=== PATIENT | male | born 1940 | race African-American/Black ===

== ENCOUNTER 2016-04-27 17:00 | Emergency (ER) | payer OTHER ==
[2016-04-27 16:40] LABS: BASOPHILS 0.3 %; BASOPHILS ABSOLUTE 0.02 10/3/uL (0.0-0.16); EOSINOPHILS 1.7 %; HEMATOCRIT 45.4 % (40.0-51.0); HEMOGLOBIN 15.1 g/dL (13.6-17.8); IMMATURE GRANULOCYTES 0.2 %; IMMATURE GRANULOCYTES ABSOLUTE 0.01 10/3/uL (0.0-0.11); LYMPHOCYTES 15.7 %; LYMPHOCYTES ABSOLUTE 0.95 10/3/uL (0.67-4.30); MEAN CORPUS HGB CONC 33.3 g/dL (32.0-36.0); MEAN CORPUSCULAR HEMOGLOB 28.1 pg (26.0-34.0); MEAN CORPUSCULAR VOLUME 84.4 fL (80-100); MEAN PLATELET VOLUME 9.2 fL (9.2-13.0); MONOCYTES 10.7 %; MONOCYTES ABSOLUTE 0.65 10/3/uL (0.21-1.20); NEUTROPHILS 71.4 %; NEUTROPHILS ABSOLUTE 4.33 10/3/uL (2.02-8.40); RBC DISTRIBUTION WIDTH 13.4 % (12.0-16.0); RED CELL COUNT 5.38 10/6/uL (4.7-6.1); WHITE BLOOD CELLS 6.1 10/3/uL (4.5-10.5)
[2016-04-27 16:41] LABS: MANUAL DIFF NO %; PLATELET COUNT 289 10/3/uL (150-400)
[2016-04-27 16:55] LABS: ASCORBIC ACID (UR NOT ORDER) NEG (NEG); BILIRUBIN, URINE NEGATIVE (NEG); ER URINALYSIS TAT 0 Hrs 21 Mins; KETONE, URINE NEGATIVE (NEG); LEUKOCYTE ESTERASE(NOT OR TRACE (NEG); NITRITE (URINE) NEG (NEG); WBC (NOT ORDERED) (RFLEX) 12 (0-5)
[2016-04-27 16:55] LABS: A/G RATIO 0.7 (0.7-1.9); ALBUMIN 3.2 G/DL (3.5-5.0); ALKALINE PHOSPHATASE 86 U/L (45-117); BUN (BLOOD UREA NITROGEN) 15 MG/DL (6-23); CALCIUM, SERUM 8.9 MG/DL (8.5-10.4); CHLORIDE, SERUM 106 MMOL/L (96-112); CO2 (CARBON DIOXIDE) 23 MMOL/L (24-34); CREATININE 1.53 MG/DL (0.70-1.30); GFR AFRICAN AMERICAN 52 ML/MIN (>=60); GFR NON AFRICAN AMERICAN 44 ML/MIN (>=60); GLOBULIN 4.9 G/DL (2.5-4.1); GLUCOSE, SERUM 287 MG/DL (60-99); POTASSIUM, SERUM 4.8 MMOL/L (3.5-5.3); SGOT(AST) 10 U/L (5-40); SGPT(ALT) 24 U/L (5-65); SODIUM, SERUM 139 MMOL/L (135-148); TOTAL BILIRUBIN 0.6 MG/DL (0-1.2); TOTAL PROTEIN 8.1 G/DL (6.0-8.5)
[~2016-04-27 17:00] MED LIST: ASAB PO; COREG6 PO; FISH-EPA1000 MG PO; GLUCOPHAGE1000 MG PO; GLUCPH8 PO; ISMO20 MG PO; ISORDIL20 PO; LANTUS SC; LOP25 PO; MAGOX4 PO; MONOKET20 PO; NEUR100 PO; NITROSTAT0.4 MG SL; NOVOLOG SC; PLAVIX PO; PREV15 PO; PRIN20 PO; ZESTRIL10 MG PO; ZOCOR40 PO
== END 2016-04-27 19:41 | disposition home or self-care (01) ==
LOC: ER 17:00
PROVIDERS: Emergency Medicine
DX: R10.9 Unspecified abdominal pain (principal); R31.9 Hematuria, unspecified; I10 Essential (primary) hypertension; E11.9 Type 2 diabetes mellitus without complications; Z95.1 Presence of aortocoronary bypass graft; Z87.891 Personal history of nicotine dependence; Z79.82 Long term (current) use of aspirin; Z79.899 Other long term (current) drug therapy
CPT/HCPCS: 74176; 80053; 81001; 83690; 85025; 99285; A9270-GY

== ENCOUNTER 2016-05-04 06:15 | Inpatient (IN) | payer OTHER ==
[2016-04-30 15:15] LABS: BUN (BLOOD UREA NITROGEN) 16 MG/DL (6-23); CALCIUM, SERUM 8.7 MG/DL (8.5-10.4); CHLORIDE, SERUM 106 MMOL/L (96-112); CO2 (CARBON DIOXIDE) 27 MMOL/L (24-34); CREATININE 1.61 MG/DL (0.70-1.30); GFR AFRICAN AMERICAN 48 ML/MIN (>=60); GFR NON AFRICAN AMERICAN 42 ML/MIN (>=60); POTASSIUM, SERUM 4.1 MMOL/L (3.5-5.3); SODIUM, SERUM 141 MMOL/L (135-148)
[2016-04-30 15:16] LABS: GLUCOSE, SERUM 221 MG/DL (60-99)
--- NOTE | ~2016-05-04 | OP ---
Record Of Operation [facility] [address] [place]. [address] NAME: MILLICENT DAVIDSON : 44 STATUS : ADM IN PAT#: [id number] AGE: 75 ADM/REG DATE : 05/04/16 MR#: [id number] REPORT SERV DATE: 05/04/16 DICTATED BY: TION VELAZCO DATE: 05/04/16 REPORT STATUS : Draft TRANSCRIBED BY: MODL DATE: 05/04/16 DATE OF PROCEDURE: 05/04/2016 PREOPERATIVE DIAGNOSES: 1. Severe left internal carotid artery stenosis. 2. Occlusion of the right internal carotid artery. SURGERY PERFORMED: Left carotid endarterectomy. SURGEON: Tino Velazco M.D. MONUMENT SETTER: Scot. DESCRIPTION OF PROCEDURE: The patient was placed under general endotracheal anesthesia. The neck and chest were prepped and draped in sterile fashion. Incision was made along the anterior border of the sternocleidomastoid muscle and carried through the skin and subcutaneous tissue. Platysma was opened with the cautery unit and the facial vein was doubly clamped, divided, and tied with 3-0 silk suture. The common carotid artery was dissected from the surrounding tissue using sharp dissection. The common carotid artery was encircled with a vessel loop. Dissection of the internal and external was done sharply. Additional venous structures were doubly ligated. The ansa cervicalis also was doubly clipped and divided in order to get more exposure distally. These vessels were encircled with vessel loops. He was given 5000 units of heparin and after an adequate period of time, the internal and external common carotid arteries were occluded. Arteriotomy was made in the common and extended through the bulb into the internal with the Summers scissors. Endarterectomy was carried out with the [place] elevator. The proximal plaque was cut sharply, the external was done as an eversion, the internal showed a step-off that was tacked down with interrupted 6-0 Prolene suture. The opening in the vessel was then closed with a bovine patch, which was sewn on with running 6-0 Prolene suture. Before the patch was completed, the shunt was removed. Flushing was carried out and then the patch was completed, suture tied. Flow initially was released to the external and then to the internal carotid artery. Surgicel was placed over the patch. He was given 40 mg of protamine. Hemostasis was obtained using the cautery unit. A 7 flat BRISEYDA drain was brought out inferiorly and sutured to the skin with 3-0 Vicryl. The wound was then closed with 2-0 and 3-0 Vicryl for the deep tissue and the platysma. Skin was closed with a subcuticular 4- 0 Monocryl. Dry dressings were applied. Estimated blood loss was 150 mL. He did awake from the operating room, moving all four extremities. MG/MODL Tino Velazco M.D. / [id number] Record Of [address] [address] NAME: MILLICENT DAVIDSON : 44 STATUS : ADM IN [facility]#: [id number] AGE: 75 ADM/REG DATE : 05/04/16 MR#: [id number] REPORT SERV DATE: 05/04/16 DICTATED BY: TINO VELAZCO DATE: 05/04/16 REPORT STATUS : Draft TRANSCRIBED BY: MODL DATE: 05/04/16 CC: Tino Velazco M.D.
[2016-05-04 07:07] LABS: ASCORBIC ACID (UR NOT ORDER) NEG (NEG); BILIRUBIN, URINE NEGATIVE (NEG); KETONE, URINE NEGATIVE (NEG); LEUKOCYTE ESTERASE(NOT OR MOD (NEG); WBC (NOT ORDERED) (RFLEX) 22 (0-5)
[2016-05-04 15:03] LABS: HEMOGLOBIN 12.9 g/dL (13.6-17.8)
[2016-05-04 15:09] LABS: HEMATOCRIT 37.8 % (40.0-51.0)
[2016-05-05 04:01] LABS: BUN (BLOOD UREA NITROGEN) 8 MG/DL (6-23); CALCIUM, SERUM 7.5 MG/DL (8.5-10.4); CHLORIDE, SERUM 105 MMOL/L (96-112); CO2 (CARBON DIOXIDE) 26 MMOL/L (24-34); CREATININE 0.99 MG/DL (0.70-1.30); GFR AFRICAN AMERICAN 87 ML/MIN (>=60); GFR NON AFRICAN AMERICAN 75 ML/MIN (>=60); GLUCOSE, SERUM 164 MG/DL (60-99); POTASSIUM, SERUM 3.6 MMOL/L (3.5-5.3); SODIUM, SERUM 141 MMOL/L (135-148)
[2016-05-05] MEDS ORDERED: PCET PO (12:39)
== END 2016-05-05 16:10 | disposition home or self-care (01) | DRG 39 ==
LOC: SDC/OF 06:15 → PACU 10:11 → CVICU 11:37
PROVIDERS: Surgery Vascular Surgery
PROC: 03CL0ZZ Extirpation of Matter from Left Internal Carotid Artery, Open Approach (ICD-10-PCS; principal; 2016-05-04 08:15)
DX: I65.23 Occlusion and stenosis of bilateral carotid arteries (principal); E11.9 Type 2 diabetes mellitus without complications; I12.9 Hypertensive chronic kidney disease with stage 1 through stage 4 chronic kidney disease, or unspecified chronic kidney disease; I25.10 Atherosclerotic heart disease of native coronary artery without angina pectoris; Z79.4 Long term (current) use of insulin; Z79.899 Other long term (current) drug therapy; Z95.5 Presence of coronary angioplasty implant and graft; I73.9 Peripheral vascular disease, unspecified; N18.2 Chronic kidney disease, stage 2 (mild); Z79.84 Long term (current) use of oral hypoglycemic drugs; Z79.02 Long term (current) use of antithrombotics/antiplatelets; Z28.21 Immunization not carried out because of patient refusal
CPT/HCPCS: 71020; 80048; 81001; 82962; 85014; 85018; 87086; 87641; 88304; 88311; A9270-GY; C1768; J0690; J1170; J2250; J2270; J2370; J2405; J2710; J2720; J3010

== ENCOUNTER 2016-05-25 13:10 | Day surgery (SDC) | payer OTHER ==
[2016-05-19 11:36] LABS: BASOPHILS 0.7 %; BASOPHILS ABSOLUTE 0.04 10/3/uL (0.0-0.16); EOSINOPHILS 4.2 %; EOSINOPHILS ABSOLUTE 0.23 10/3/uL (0.0-0.53); HEMOGLOBIN 11.2 g/dL (13.6-17.8); IMMATURE GRANULOCYTES 0.2 %; IMMATURE GRANULOCYTES ABSOLUTE 0.01 10/3/uL (0.0-0.11); LYMPHOCYTES 27.3 %; LYMPHOCYTES ABSOLUTE 1.49 10/3/uL (0.67-4.30); MEAN CORPUS HGB CONC 33.8 g/dL (32.0-36.0); MEAN CORPUSCULAR HEMOGLOB 28.6 pg (26.0-34.0); MEAN CORPUSCULAR VOLUME 84.4 fL (80-100); MEAN PLATELET VOLUME 8.5 fL (9.2-13.0); MONOCYTES 10.1 %; MONOCYTES ABSOLUTE 0.55 10/3/uL (0.21-1.20); NEUTROPHILS 57.5 %; NEUTROPHILS ABSOLUTE 3.13 10/3/uL (2.02-8.40); PLATELET COUNT 247 10/3/uL (150-400); RBC DISTRIBUTION WIDTH 13.7 % (12.0-16.0); WHITE BLOOD CELLS 5.5 10/3/uL (4.5-10.5)
[2016-05-19 11:37] LABS: HEMATOCRIT 33.1 % (40.0-51.0); MANUAL DIFF NO %; RED CELL COUNT 3.92 10/6/uL (4.7-6.1)
[2016-05-19 11:51] LABS: BUN (BLOOD UREA NITROGEN) 10 MG/DL (6-23); CALCIUM, SERUM 8.4 MG/DL (8.5-10.4); CHLORIDE, SERUM 108 MMOL/L (96-112); CO2 (CARBON DIOXIDE) 28 MMOL/L (24-34); CREATININE 1.37 MG/DL (0.70-1.30); GFR AFRICAN AMERICAN 59 ML/MIN (>=60); GFR NON AFRICAN AMERICAN 51 ML/MIN (>=60); GLUCOSE, SERUM 170 MG/DL (60-99); POTASSIUM, SERUM 3.8 MMOL/L (3.5-5.3); SODIUM, SERUM 145 MMOL/L (135-148)
--- NOTE | ~2016-05-25 | OP ---
Record Of Operation [facility] [address] [place]. [address] NAME: MILLICENT DAVIDSON : 44 STATUS : [facility]#: [id number] AGE: 75 ADM/REG DATE : 05/25/16 MR#: [id number] REPORT SERV DATE: 05/26/16 DICTATED BY: RODERICK LIND III DATE: 05/25/16 REPORT STATUS : Draft TRANSCRIBED BY: MODL DATE: 05/25/16 DATE OF PROCEDURE: 05/25/2016 PROCEDURE: Cystoscopy, left retrograde, left ureteroscopy, and of double-J stent. PREOPERATIVE DIAGNOSIS: Previous left ureteral calculus. POSTOPERATIVE DIAGNOSIS: Probable fragmented or passed stone. ANESTHESIA: General. SURGEON: Roderick Lind M.D. DESCRIPTION OF PROCEDURE: Following induction of adequate general anesthesia, the patient was placed in dorsal lithotomy position, prepped and draped in a sterile fashion. The urethra was normal. The prostate was unremarkable. There was a high bladder neck. The bladder was entered and there was some crystalline material in the base of the bladder, but no sizable stone. The stone was only 2.7 mm to begin with. The stent was removed, a wire placed, ureteroscopy was done, and there was again some crystalline material, but in the area where I had anticipated the stone, I did not see one. I was able to rigid scope up to about L5. Following this, I placed a 9-Finnish sheath and passed it up to that level and with the flexible ureteroscope, evaluated the ureter and the kidney checking all the calices twice. He is on Plavix now and did have some clots. I looked my way out on removing the sheath and there was no perforation. Several clots were engaged with the basket and dropped off in the bladder. A 5 x 26 Polaris stent was placed. A suture was left taped to the penis for later removal. He tolerated the procedure well. OB/MODL Roderick Lind III, M.D. / [id number] CC: Roderick Lind III, M.D.
[~2016-05-25 13:10] MED LIST changes: +PCET PO
== END 2016-05-25 19:16 | disposition home or self-care (01) ==
LOC: SDC 13:10
PROVIDERS: Urology
PROC: BT1FZZZ Fluoroscopy of Left Kidney, Ureter and Bladder (ICD-10-PCS; 2016-05-25)
PROC: 0TP98DZ Removal of Intraluminal Device from Ureter, Via Natural or Artificial Opening Endoscopic (ICD-10-PCS; principal; 2016-05-25 14:30)
DX: N28.89 Other specified disorders of kidney and ureter (principal); I10 Essential (primary) hypertension; I25.10 Atherosclerotic heart disease of native coronary artery without angina pectoris; I25.2 Old myocardial infarction; E11.51 Type 2 diabetes mellitus with diabetic peripheral angiopathy without gangrene; Z87.442 Personal history of urinary calculi; E78.00 Pure hypercholesterolemia, unspecified; Z95.1 Presence of aortocoronary bypass graft; Z86.79 Personal history of other diseases of the circulatory system; Z98.890 Other specified postprocedural states; Z79.82 Long term (current) use of aspirin; Z79.02 Long term (current) use of antithrombotics/antiplatelets; Z79.4 Long term (current) use of insulin; Z79.84 Long term (current) use of oral hypoglycemic drugs; Z79.899 Other long term (current) drug therapy; Z87.828 Personal history of other (healed) physical injury and trauma; Z98.49 Cataract extraction status, unspecified eye; Z96.1 Presence of intraocular lens; Z87.891 Personal history of nicotine dependence
CPT/HCPCS: 74420; 80048; 82962; 85025; 88300; 93005; A9270-GY; C1758; C1769; C1894; C2617; J0360; J2405; J2710; J3010; Q9967

== ENCOUNTER 2016-06-05 05:40 | Day surgery (SDC) | payer OTHER ==
--- NOTE | ~2016-06-05 | EGD ---
EGD REPORT [facility] [address] [place] [address] NAME: PAVITHRA KLINE : 44 STATUS : REG [facility] PAT#: [id number] AGE: 76 ADM/REG DATE : 06/05/16 MR#: [id number] REPORT SERV DATE: 06/05/16 DICTATED BY: MARSHA HARTMAN DATE: 06/05/16 REPORT STATUS : Draft TRANSCRIBED BY: [facility] DATE: 06/05/16 Endoscopy Center Patient Name: Pavithra Kline Date of : 1940 Attending MD: MARSHA HARTMAN MD Procedure Date No Time: 06/05/2016 Procedure: Colonoscopy Indications: Screening for colorectal malignant neoplasm; average risk; index exam. Patient Profile: Informed consent was obtained from the patient by me prior to the procedure. Risks, benefits, and alternatives were discussed including the risk of bleeding, perforation, infection, reaction to medicine, missed lesion, and cardiopulmonary complications. Medicines: Monitored Anesthesia Care Complications: No immediate complications. Procedure: Pre-Anesthesia Assessment: - ASA Grade Assessment: III - A patient with severe systemic disease. After I obtained informed consent, the scope was passed under direct vision. Throughout the procedure, the patient's blood pressure, pulse, and oxygen saturations were monitored continuously. The CF [id number] was introduced through the anus and advanced to the cecum, identified by appendiceal orifice and ileocecal valve. The colonoscope was slowly withdrawn with careful examination all mucosal surfaces including specific attention around flexures and tip deflection behind folds; retroflexion performed in rectum. The colonoscopy was performed without difficulty. The patient tolerated the procedure well. The quality of the bowel preparation was adequate. The ileocecal valve, appendiceal orifice and rectum were photographed. Findings: The colon (entire examined portion) appeared normal. Internal hemorrhoids were found, and they were mild. Impression: - The entire examined colon is normal. - Internal hemorrhoids. Recommendation: - Patient has a contact number available for emergencies. The signs and symptoms of potential delayed complications were discussed with the patient. Return to normal activities tomorrow. Written discharge EGD REPORT [address] [address] NAME: PAVITHRA KLINE : 44 STATUS : REG [facility] PAT#: [id number] AGE: 76 ADM/REG DATE : 06/05/16 MR#: [id number] REPORT SERV DATE: 06/05/16 DICTATED BY: MARSHA HARTMAN. DATE: 06/05/16 REPORT STATUS : Draft TRANSCRIBED BY: [employer] DATE: 06/05/16 instructions were provided to the patient. - Regular diet. - Continue present medications. - Repeat colonoscopy in 10 years for screening purposes. Procedure Code(s): --- Professional --- 44037, Colonoscopy, flexible, proximal to splenic flexure; diagnostic, with or without collection of specimen(s) by brushing or washing, with or without colon decompression (separate procedure) Diagnosis Code(s): --- Professional --- K64.8, Other hemorrhoids Z12.11, Encounter for screening for malignant neoplasm of colon CPT copyright 2013 [employer]. All rights reserved. The codes documented in this report are preliminary and upon medical biller/coder review may be revised to meet current compliance requirements. MARSHA HARTMAN MD 06/05/2016 7:17 AM This report has been signed electronically. Number of Addenda: 0 Note Initiated On: 06/05/2016 6:57 AM Scope Withdrawal Time 0 hours 9 minutes 11 seconds [address] [id number]
== END 2016-06-05 23:59 | disposition home or self-care (01) ==
LOC: DMU 05:40
PROVIDERS: Internal Medicine Gastroenterology
PROC: 0DJD8ZZ Inspection of Lower Intestinal Tract, Via Natural or Artificial Opening Endoscopic (ICD-10-PCS; principal; 2016-06-05 07:00)
DX: Z12.11 Encounter for screening for malignant neoplasm of colon (principal); K64.8 Other hemorrhoids; I10 Essential (primary) hypertension; I73.9 Peripheral vascular disease, unspecified; K21.9 Gastro-esophageal reflux disease without esophagitis; N20.1 Calculus of ureter; E78.00 Pure hypercholesterolemia, unspecified; E11.9 Type 2 diabetes mellitus without complications; Z95.1 Presence of aortocoronary bypass graft; Z95.5 Presence of coronary angioplasty implant and graft; Z87.442 Personal history of urinary calculi; Z98.41 Cataract extraction status, right eye; Z98.42 Cataract extraction status, left eye; Z96.1 Presence of intraocular lens; Z79.899 Other long term (current) drug therapy; Z79.891 Long term (current) use of opiate analgesic; Z79.82 Long term (current) use of aspirin; Z79.4 Long term (current) use of insulin
CPT/HCPCS: 82962